=== PATIENT | male | born 1985 | race African-American/Black ===

== ENCOUNTER 2017-07-24 20:18 | Emergency (ER) | payer OTHER ==
[~2017-07-24] VITALS: Ht 190.5 cm; Wt 113.4 kg
[2017-07-24] MEDS ORDERED: NORCO 5-325 TA1 EACH PO (22:14)
[2017-07-24 22:25] VITALS: BP 126/78
== END 2017-07-24 22:56 | disposition home or self-care (01) ==
LOC: ER 20:18
DX: S00.33XA Contusion of nose, initial encounter (principal); R07.81 Pleurodynia; M25.511 Pain in right shoulder; V89.2XXA Person injured in unspecified motor-vehicle accident, traffic, initial encounter; Y92.89 Other specified places as the place of occurrence of the external cause; Y93.89 Activity, other specified; Y99.8 Other external cause status